=== PATIENT | male | born 2005 | race Two or more races ===

== ENCOUNTER 2025-05-24 04:16 | Emergency (ER) | payer MEDICAID, SELFPAY ==
[2025-05-24 04:17] VITALS: BMI 24.4
[2025-05-24 04:30] VITALS: BP 129/79; PULSE 91; RESP 16; TEMP 37.2; O2SAT 98
--- NOTE | 2025-05-24 04:44 | EDNOTE_ITS ---
ED Dental RME/HPI General Chief complaint: Dental/Oral/Throat Stated complaint: SORE THROAT Time Seen by Provider: 05/24/25 04:43 Source: patient, RN notes reviewed and old records reviewed Arrival date/time: 05/24/25 04:16 Mode of arrival: ambulatory Limitations: no limitations RME / HPI RME / HPI Narrative: 19yom presents to the ED for 2-day history of sore throat. No known sick contacts or strep exposures. Patient reports intermittent subjective fever. No cough, shortness of breath, nausea/vomiting, neck pain or headache reported. Patient has taken ibuprofen intermittently with some relief. Related Data Previous Rx's ?Medication ?Instructions ?Recorded amoxicillin 500 mg tablet 1,000 mg (2 x 500 mg) PO QDA Y 10 05/24/25 days #20 tabs benzocaine 15 mg-menthol 3.6 mg 1 chana PO Q4HR PRN thro at pain #16 05/24/25 lozenges (Cepacol Sore Throat ea (benzocaine-menthol)) ibuprofen 600 mg tablet 600 mg PO Q6H PRN fever or p ain 05/24/25 #20 tabs Allergies Allergy/AdvReac Type Severity Reaction Status Date / Time No Known Allergies Allergy Verified 05/24/25 04:17 Review of Systems Review of Systems Systems Reviewed: All systems reviewed, normal except as documented Constitutional Constitutional: Reports chills, Reports fever(s) and Denies headache(s) ENT Ears, Nose, Mouth, and Throat: Denies headache(s), Denies neck pain and Reports sore throat Cardiovascular Cardiovascular: Denies dyspnea Respiratory Respiratory: Denies dyspnea Gastrointestinal Gastrointestinal: Denies nausea and Denies vomiting Musculoskeletal Musculoskeletal: Denies neck pain Neurologic Neurologic: Denies headache(s) Past Medical History Surgical History OTHER SURGICAL HX: denies pshx Social History SMOKING STATUS: Never smoker SUBSTANCE USE: marijuana ALCOHOL: Never Past Medical History Comments PMH COMMENT: denies pmhx ED Exam General Limitations: Present no limitations General appearance: Present alert and in no apparent distress Head Head exam: Present atraumatic and normocephalic Eye Eye exam: Present normal appearance, PERRL and EOMI ENT ENT exam: Present mucous membranes moist and other (Mild pharyngeal erythema. 2-3+ bilateral tonsillar swelling (R mildly > L) without exudate, uvula midline. Airway patent) Neck Neck exam: Present normal inspection and full ROM Chest Chest inspection: Present normal inspection and symmetric chest wall rise Respiratory Respiratory exam: Present normal lung sounds bilaterally; Absent respiratory distress, wheezes or stridor Cardiovascular Cardiovascular exam: Present regular rate and normal rhythm Extremities Exam Extremities exam: Present normal inspection and full ROM Neurological Exam Neurological exam: Present alert and oriented X3 Psychiatric Psychiatric exam: Present normal affect and normal mood Skin Skin exam: Present warm, dry, intact and normal color Course Quality Measures none Orders Category Date Time Status Dexamethasone Inj [Decadron Inj] Med 05/24/25 04:43 Discontinued 10 mg PO X1 ONE Ibuprofen Tab [Motrin Tab] Med 05/24/25 04:43 Discontinued 800 mg PO X1 ONE Vital Signs Vital signs: Vital Signs Temperature 99.0 F 05/24/25 04:30 Pulse Rate 91 05/24/25 04:30 Respiratory Rate 16 05/24/25 04:30 Blood Pressure 129/79 05/24/25 04:30 Pulse Oximetry (%) 98 05/24/25 04:30 Oxygen Delivery Method Room Air 05/24/25 04:30 Dental / Oral MDM Narrative MDM Narrative:: 19yom presents to the ED for 2-day history of sore throat. No known sick contacts or strep exposures. Patient reports intermittent subjective fever. No cough, shortness of breath, nausea/vomiting, neck pain or headache reported. Patient has taken ibuprofen intermittently with some relief. Will treat for tonsillitis. Patient is nontoxic-appearing, afebrile, vitals are stable. Motrin/tylenol, cepacol lozenges prn pain. Stable for dc, RTED precautions given. Patient data External records reviewed:: [facility] previous records (Urgent care visit 05/26/2019 for fever) Clinical information provided by:: patient Social determinants that could affect healthcare access:: none Patient has the following chronic illnesses:: None How is presenting disease/condition affected by chronic disease/condition?: no chronic disease Evaluation data The following diagnostics were reviewed and interpreted by me:: other (specify) (None) Lab and/or radiology exams considered but not ordered:: Strep test: Plan to treat based on history and exam Interpretation Summary: na Medications / Prescriptions Medications or Prescriptions considered but not ordered:: None Medication administrations:: Medication Administration History Discontinued Medications Dexamethasone Sodium Phosphate (Dexamethasone Sod Phos Inj 10 Mg/Ml Vial) 10 mg PO X1 ONE Stop: 05/24/25 04:44 Ibuprofen (Ibuprofen Tab 400 Mg Tablet) 800 mg PO X1 ONE Stop: 05/24/25 04:44 Above medications administered in ED Consultations Consultation(s) initiated? (list below): No Diagnosis Dental Differential Diagnosis: other (Tonsillitis, pharyngitis, mono, URI, viral illness, strep, covid, flu, [employer], RPA) Most likely diagnosis given after review of the tests above:: Tonsillitis Admission Indicated Admission indicated?: not indicated Admission Request Was there a request for admission?: No Disposition Plan Disposition Plan: Discharge Discharge Attestation Discharge Attestation: The patient and all family members were given an opportunity to ask questions and understood the discharge instructions. Discharge instructions specifically effects, indications for sooner follow up or return to the emergency department, and the expected course of current diagnosis. Patient condition: Stable Discharge Plan Plan Patient Disposition: HOME (Self Care) Patient condition on transfer: Stable Prescriptions/Referrals Prescriptions/Med Rec: New amoxicillin 500 mg tablet 1,000 mg PO QDAY 10 Days Qty: 20 0RF ibuprofen 600 mg tablet 600 mg PO Q6H PRN (Reason: fever or pain) Qty: 20 0RF Cepacol Sore Throat (marcia-men) 15-3.6 mg lozenge 1 chana PO Q4HR PRN (Reason: throat pain) Qty: 16 0RF Problem List Clinical Impression: Tonsillitis Patient/Caregiver Discharge Instructions Education Materials: Tonsillitis in Adults Print Language: Uzbek Stand Alone Forms: [facility]enzie Award Info., Patient Portal Info Letter PA/REAL ESTATE INTERN Supervising Physician GENOVEVA/REAL ESTATE INTERN Supervising Physician: Isael
[2025-05-24] MEDS: DEXAMETHASONE SOD PHOS INJ 10 MG/ML VIAL PO (04:55)
[2025-05-24] MEDS: IBUPROFEN TAB 400 MG TABLET 800 MG PO (04:55)
[2025-05-24 05:34] VITALS: RESP 14
== END 2025-05-24 05:34 | disposition home or self-care (01) ==
LOC: SERX 05:22
PROVIDERS: Emergency Provider Emergency Medicine; PCP Family Medicine
DX: J03.90 Acute tonsillitis, unspecified (principal)
CPT/HCPCS: 99282; J1100; A9270